=== PATIENT | female | born 1995 | race Caucasian/White ===

== ENCOUNTER 2018-06-10 20:08 | Emergency (ER) | payer OTHER ==
[2018-06-10 20:57] LABS: #Basophils 0.1 thou/uL (0.0-0.2); #Eosinphils 0.1 thou/uL (0.0-0.7); #Lymphocytes 2.6 thou/uL (1.20-3.40); #Monocytes 0.7 thou/uL (0.11-0.59); #Neutrophils 4.4 thou/uL (1.40-6.50); %Basophils 0.7 % (0.0-1.0); %Eosinophils 1.4 % (0.0-10.0); %Lymphocytes 33.6 % (28.0-48.0); %Monocytes 8.3 % (0.0-4.0); Hemoglobin 13.5 g/dL (12.0-16.0); Mean Corpuscular HGB CONC 32.4 g/dL (32.0-36.0); Mean Corpuscular Hemoglobin 29.9 pg (25.0-35.0); Mean Corpuscular Volume 92.4 fL (78.0-98.0); Mean Platelet Volume 10.5 fL (7.4-10.4); Platelet Count 204 thou/uL (130-400); RBC Distribution Width 12.6 % (11.5-14.5); Red Blood Cell (RBC) Count 4.51 mill/uL (4.00-5.20); White Blood Cell (WBC) Count 7.9 thou/uL (4.8-10.8)
[2018-06-10 21:06] LABS: BHCG - Serum Negative (NEGATIVE); Pregs Control Background? CLEAR/WHITE (CLR/WHITE); Pregs Control Bar Appear? YES (CONTROL BAR)
[2018-06-10 21:12] LABS: Anion Gap 14 mmol/L (10-20); BUN (Urea Nitrogen) 13 mg/dL (7.0-18.7); Calc. Creatinine Clearance 0 mL/min (70-130); Calcium 9.5 mg/dL (7.8-10.44); Carbon Dioxide 20 mmol/L (22-29); Chloride 108 mmol/L (98-107); Estimated GFR-MDRD Greater than 90; Glucose 88 mg/dL (70-105); Sodium 138 mmol/L (136-145)
== END 2018-06-10 21:30 | disposition home or self-care (01) ==
LOC: MADERS 20:08
DX: N93.8 Other specified abnormal uterine and vaginal bleeding (principal); F41.9 Anxiety disorder, unspecified; F32.9 Major depressive disorder, single episode, unspecified
CPT/HCPCS: 80048; 84703; 85025; 99284

== ENCOUNTER 2019-01-07 01:49 | Emergency (ER) | payer OTHER, SELFPAY ==
[2019-01-07] MEDS ORDERED: Sodium Chloride 0.9% 1,000 ML ONE (03:40)
[2019-01-07] MEDS ORDERED: Ketorolac Tromethamine 30 MG/ML VIAL ONE (03:40)
[2019-01-07] MEDS ORDERED: Ondansetron PF 4 MG/2 ML Vial ONE (03:40)
[2019-01-07 03:50] LABS: #Basophils 0.1 thou/uL (0.0-0.2); #Eosinphils 0.2 thou/uL (0.0-0.7); #Lymphocytes 3.4 thou/uL (1.20-3.40); #Monocytes 0.7 thou/uL (0.11-0.59); #Neutrophils 4.8 thou/uL (1.40-6.50); %Basophils 1.1 % (0.0-1.0); %Eosinophils 2.3 % (0.0-10.0); %Lymphocytes 36.7 % (21.0-51.0); %Monocytes 7.8 % (0.0-10.0); Hemoglobin 14.5 g/dL (12.0-16.0); Mean Corpuscular HGB CONC 33.1 g/dL (32.0-36.0); Mean Corpuscular Hemoglobin 29.3 pg (27.0-31.0); Mean Corpuscular Volume 88.5 fL (78.0-98.0); Mean Platelet Volume 10.7 fL (7.4-10.4); Platelet Count 193 thou/uL (130-400); RBC Distribution Width 13.6 % (11.5-14.5); Red Blood Cell (RBC) Count 4.95 mill/uL (4.20-5.40); White Blood Cell (WBC) Count 9.3 thou/uL (4.8-10.8)
[2019-01-07 03:52] LABS: Bilirubin Negative (Negative); Blood, Urine Trace (Negative); Clarity Clear (Clear); Glucose, Urine (Dipstick) Negative (Negative); Leukocyte Negative (Negative); Nitrite Negative (Negative); Protein, Urine (Dipstick) Negative (Neg-Trace); Urobilinogen 0.2 mg/dL (0.2-1.0)
[2019-01-07 03:53] LABS: Pregnancy Test - Urine (BHCG) Negative (Negative); Pregu Control Background? CLEAR/WHITE (CLR/WHITE); Pregu Control Bar Appear? YES (CONTROL BAR); Specific Gravity 1.015 (1.002-1.036)
[2019-01-07 03:57] LABS: Bacteria/HPF None Seen HPF (None Seen); Squamous Epithelial 0-3 HPF (0-3); WBC/HPF 0-3 HPF (0-3)
[2019-01-07 04:10] LABS: ALT (SGPT) 24 U/L (8-55); AST (SGOT) 20 U/L (5-34); Albumin 4.6 g/dL (3.5-5.0); Alkaline Phosphatase 66 U/L (40-150); Anion Gap 13 mmol/L (10-20); BUN (Urea Nitrogen) 11 mg/dL (7.0-18.7); Calc. Creatinine Clearance 0 mL/min (70-130); Calcium 9.9 mg/dL (7.8-10.44); Carbon Dioxide 25 mmol/L (22-29); Chloride 105 mmol/L (98-107); Estimated GFR-MDRD 86; Globulin 3.4 g/dL (2.4-3.5); Glucose 92 mg/dL (70-105); Lipase 45 U/L (8-78); Potassium 4.1 mmol/L (3.5-5.1); Sodium 139 mmol/L (136-145)
[2019-01-07 04:15] LABS: Bilirubin, Total 0.6 mg/dL (0.2-1.2)
--- NOTE | 2019-01-07 10:16 | CT ---
PRELIMINARY REPORT/[facility]/EMERGENCY AFTER HOURS PROCEDURE: EXAM: CT Abdomen and Pelvis With Contrast EXAM DATE/TIME: 01/07/2019 4:10 AM CLINICAL HISTORY: 23 years old, female; Abdominal pain and other: Pelvic; Localized; Lower; Additional info: PT states lower abd and pelvic pain. Worse than cramping. More painful when sitting up. TECHNIQUE: Imaging protocol: Axial computed tomography images of the abdomen and pelvis with intravenous contras t. Coronal and sagittal reformatted images were created and reviewed. Contrast material: ISOVUE 370; Contrast volume: 90 ml; Contrast route: IV; COMPARISON: No relevant prior studies available. FINDINGS: Lungs: No consolidations in the lung bases. Liver: No liver masses. Gallbladder and bile ducts: Normal appearance of the gallbladder. No ductal dilation. Pancreas: No pancreatic mass or ductal dilation. Spleen: No splenic masses. Adrenals: No adrenal nodules. Kidneys and ureters: No enhancing mass or hydronephrosis. Stomach and bowel: No obstruction or mucosal thickening. Appendix: The appendix measures between 6 and 8 mm without periappendiceal fat stranding. Intraperitoneal space: Small to moderate amount of free pelvic fluid. Vasculature: Normal vasculature. Lymph nodes: No lymphadenopathy. Bladder: Normal. Reproductive: Right ovarian cyst measuring 2.5 cm with a slightly irregular wall. Bones/joints: No suspicious bone lesions. Soft tissues: No acute findings. IMPRESSION: Small to moderate amount of free pelvic fluid, more than typical for physiologic fluid. The fluid is slightly hyperdense and there is an irregular right ovarian 2.5 cm cyst. These findings suggest ruptu red hemorrhagic cyst. Thank you for allowing us to participate in the care of your patient. Dictated and Authenticated by: Danielle Barger MD 01/07/2019 5:25 AM Central Time ([place] & [place]) FINAL REPORT ABDOMEN CT WITH CONTRAST PELVIC CT WITH CONTRAST: Date: 01/07/19 HISTORY: Abdominal pain. Pelvic pain. COMPARISON: None. FINDINGS: There is appropriate enhancement of the solid organs. No evidence of obstructive uropathy. Decreased visceral fat limits evaluation for inflammatory change. No mesenteric mass, lymphadenopathy, free air , or free fluid. Limited evaluation of the alimentary canal due to technique. Partially visualized appendix appears to be normal in caliber and air-filled. No evidence of bowel obstruction. There is a mixed attenuation focus in the right adnexa measuring 2.4 x 2.5 cm, likely representing a complex right ovarian cyst. There is complex fluid in the pelvis. Findings may represent sequelae of a recently ruptured cyst. Correlate clinically. IMPRESSION: This report is in agreement with the preliminary report by [facility]. Sequelae of a recently ruptured cyst is favored. There does appear to be a complex right ovarian hypo density which may represent a cyst. POS: OFF
[2019-01-09] MEDS ORDERED: Iopamidol 370 76% 100 ML VIAL ONE (10:00)
[2019-01-11 21:33] LABS: Chlamydia by PCR Not Detected (NotDetected); GC by PCR Not Detected (NotDetected)
== END 2019-01-07 05:42 | disposition home or self-care (01) ==
LOC: MADERS 01:49
DX: N83.201 Unspecified ovarian cyst, right side (principal); F41.9 Anxiety disorder, unspecified; F32.9 Major depressive disorder, single episode, unspecified
CPT/HCPCS: 74177; 80053; 81003; 81015; 81025; 83690; 85025; 87480; 87491; 87510; 87591; 87660; 96361; 96374; 96375; J1885; J2405; J7050

== ENCOUNTER 2020-07-17 17:35 | Outpatient (CLI) | payer OTHER | END 2020-07-17 17:36 | disposition home or self-care (01) | LOC: MADLAB 17:35 | PROVIDERS: ATTEND Family Medicine | DX: N92.4 Excessive bleeding in the premenopausal period (principal) | CPT/HCPCS: 87480; 87491; 87510; 87591; 87660 ==